=== PATIENT | female | born 2005 | race Caucasian/White ===

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

== ENCOUNTER 2024-11-28 19:31 | Inpatient (IN) | payer OTHER, SELFPAY ==
--- OUTSIDE RECORDS SUMMARY | 2024-11-28 19:35 | XMS REPORT | Continuity of Care Document ---
Author Name Unknown Address [address] [place] [address] Organization [facility] Address [address] [place] [address] Care Team Providers [employer] Name Role Phone PCP, PATIENT DOES NOT HAVE A Primary Care Physic Rachel Huerta MD Attending Clinician Unknown, Attending Attending Clinician RACHEL Coon Attending Clinician Unavailable Payers Payer Name Policy Type Policy Number Effective Date Expirati on Date Source Problems Condition Name Condition Details Condition Category Status Onset Date Resolution Date Last Treatment Date Treating Clinician Comments Source ADHD (attention deficit hyperactiv ity disorder) ADHD (attention deficit hyperactiv ity disorder) Disease Active 09-25 00:00: 00 [facility] Dyslexia Dyslexia Disease Active 09-25 00:00: 00 [facility] Medication management Medication management Disease Active 09-25 00:00: 00 Overview: Formatbucky g of this note might be different [...] so is now back on the Focalin [id number]--P ontinue Intuniv 2 mg in am--Dagmar nue Focalin XR 20 mg in am (w plan to increase to 30 mg)--Tria l of Celexa 10 mg at 6 pm [facility] Allergies, Adverse Reactions, Alerts Allergy Name Allergy Type Status Severity Reaction(s) Onset Date Inactive Date Treating Clinician Comments Source Cephalex in Propensi ty to adverse reaction s Active Swelling 10-03 00:00: 00 [facility] CEPHALEX IN DRUG INGREDI Active Swelling 10-03 00:00: 00 [facility] NO KNOWN ALLERGIE S Drug Class Active [facility] Social History Social Habit Start Date Stop Date Quantity Comments [facility] 2005 [facility] 2005 00:[facility]:00 [facility] Smoking Status Start Date Stop Date Source Tobacco smoking consumption unknown [facility] Medications Ordered Medication Name Filled Medication Name Start Date Stop Date Current Medication? Ordering Clinician Indication Dosage Frequency Signature (SIG) Comments Components Source ondansetron (ZOFRAN-ODT ) disintegrat ing tablet 4 mg 10-03 19:00: 00 10-03 18:12 :00 No [id number] 4mg 4 mg, Oral, ONCE, 1 dose, On 10/04/23 at 1400, Routine [facility] ondansetron 4 mg disintegrat ing tablet 10-03 00:00: 00 Yes [id number] 4mg Take 1 tablet by mouth every 12 (twelve) hours as needed for Nausea and Vomiting (N/V). [facility] bromphenira mine-pseudo ephedrine-D M (BROMFED DM) 2-30-10 mg/5 mL syrup 10-03 00:00: 00 Yes [id number] 10mL Take 10 mL by mouth 4 (four) times daily as needed for Congestion /Allergies , Cold symptoms or Cough. [facility] amoxicillin -clavulanat e (AUGMENTIN) 875-125 mg per tablet 10-03 00:00: 00 10-14 04:59 :00 No [id number] 1{tbl} Take 1 tablet by mouth in the morning and 1 tablet in the evening. Do all this for 10 days. [facility] dexmethylph enidate (FOCALIN XR) 20 mg 24 hr capsule 09-21 08:13: 58 Yes 20mg Take 20 mg by mouth daily. [facility] Guanfacine (INTUNIV) 2 mg Tb24 09-21 08:13: 58 Yes Take by mouth. [facility] citalopram (CELEXA) 10 mg tablet 09-21 00:00: 00 Yes At supper time/after school at about 6pm [facility] Vital Signs Vital Name Observation Time Observation Value Comments S zhou Systolic blood pressure 2023-10-04 17:31:00 121 mm[Hg] [facility] Diastolic blood pressure 2023-10-04 17:31:00 85 mm[Hg] [facility] Heart rate 2023-10-04 17:31:00 87 /min [facility] Body temperature 2023-10-04 17:31:00 36.83 Dora [facility] Respiratory rate 2023-10-04 17:31:00 18 /min [facility] Body height 2023-10-04 17:31:00 160 cm [facility] Body weight 2023-10-04 17:31:00 63.141 kg [facility] BMI 2023-10-04 17:31:00 24.66 kg/m2 [facility] Body mass index (BMI) [Percentile] Per age and sex 2023-10-04 17:31:00 78.46 % [facility] Oxygen saturation in Arterial blood by Pulse oximetry 2023-10-04 17:31:00 98 /min [facility] Procedures Procedure Date / Time Performed Performing Clinicia n Source POCT MOLECULAR STREP 2023-10-04 17:47:00 Cherelle, Marcello painter [facility] POCT SARS-COV-2 ANTIGEN (BINAX NOW) 2023-10-04 00:00:00 Rachel Montanez [facility] Encounters Start Date/Time End Date/Time Encounter Type Admission Type Attending Clinicians Care Facility Care Department Encounter ID Source 2022-06-25 15:09:28 [facility] [id number] [facility] 2022-06-24 16:20:54 Inpatient NEHA SOLOMON [id number] [facility] 2023-10-04 12:40:00 2023-10-04 13:05:24 Urgent Care Rachel Montanez Unknown, Attending [facility] [id number] [facility] 2023-10-04 12:40:00 2023-10-04 13:05:24 Outpatient R RACHEL MONTANEZ [facility] [id number] [facility] Results Test Description Test Time Test Comments Results Result Co mments Source [facility] [id number] 17:55:11* Test Item Value Reference Range Interpretation Comme nts POCT Molecular Strep (test c ode = 19871-9) Negative Negative Lab Interpretation (test cod e = [id number]) Normal [facility]
[2024-11-28] MEDS ORDERED: HYDROCODONE/APAP 5/325 MG TAB ONE ×2 (20:01→20:13)
[2024-11-28] MEDS ORDERED: KETOROLAC 30 MG/ML INJ ONE (20:01)
[2024-11-28] MEDS ORDERED: NA CHLORIDE 0.9% 1,000 ML ONE ×2 (20:02→21:57)
--- NOTE | 2024-11-28 20:47 | EDPHYS ---
Physician Documentation [facility] Name: Sally Bautista Age: 19 yrs Sex: Female : 2005 Arrival Date: 11/28/2024 Time: 19:31 Bed 19 Private MD: ED Physician Jung Garcia HPI: 11/28 23:19 This 19 yrs old Female presents to ER via Ambulatory with complaints of Ear dr5 Pain, Back Pain. 23:19 The patient presents with pain. The complaints affect the left ear. Onset: The dr5 symptoms/episode began/occurred 1 week(s) ago. Patient is a 19-year-old female with history of ADD, anxiety, depression, PTSD coming in with left ear pain for the past week with drainage and dizziness, weakness. Patient reports that she has had syncopal episodes for the past 5 years and has not been seen by primary care doctor for it. Patient reports that she has a syncopal episode usually once every 3 days. Patient reports that she also has chronic back pain. Patient denies headache, numbness, tingling, nausea, vomiting, diarrhea. . Historical: - Allergies: 19:50 Keflex; ha1 19:50 ORANGES; ha1 19:50 Pineapple; ha1 - Home Meds: 19:50 hydroxyzine HCl 25 mg Oral tablet 1 tab as needed [Active]; buspirone 10 mg Oral tablet ha1 1 tab daily [Active]; Concerta 54 mg Oral tablet daily [Active]; - PMHx: 19:50 ADD; Anxiety; depressive disorder; PTSD; ha1 - Immunization history:: Adult Immunizations up to date. - Infectious Disease History:: Denies. - Social history:: Smoking status: Patient reports the use of cigarette tobacco products, denies chronic smoking, but will smoke occasionally, Reported history of juuling and/or vaping. ROS: 23:19 Constitutional: as per hpi dr5 Exam: 23:19 Constitutional: This is a well developed, well nourished patient who is awake, alert, dr5 and in no acute distress. Head/Face: Normocephalic, atraumatic. Eyes: Pupils equal round and reactive to light, extra-ocular motions intact. Lids and lashes normal. Conjunctiva and sclera are non-icteric and not injected. Cornea within normal limits. Periorbital areas with no swelling, redness, or edema. Neck: Trachea midline, no thyromegaly or masses palpated, and no cervical lymphadenopathy. Supple, full range of motion without nuchal rigidity, or vertebral point tenderness. No Meningismus. Chest/axilla: Normal chest wall appearance and motion. Nontender with no deformity. No lesions are appreciated. Cardiovascular: Regular rate and rhythm with a normal S1 and S2. Normal PMI, no JVD. No pulse deficits. Respiratory: Lungs have equal breath sounds bilaterally, clear to auscultation. No rales, rhonchi or wheezes noted. No increased work of breathing, no retractions or nasal flaring. Back: No spinal tenderness. No costovertebral tenderness. Full range of motion. Skin: Warm, dry with normal turgor. Normal color with no rashes, no lesions, and no evidence of cellulitis. MS/ Extremity: Pulses equal, no cyanosis. Neurovascular intact. Full, normal range of motion. Neuro: Awake and alert, GCS 15, oriented to person, place, time, and situation. Cranial nerves II-XII grossly intact. Motor strength 5/5 in all extremities. Sensory grossly intact. Cerebellar exam normal. Normal gait. Vital Signs: 19:40 BP 125 / 99; Pulse 106; Resp 18 S; Temp 97.6(O); Pulse Ox 100% on R/A; Weight 58.97 kg; ha1 Height 5 ft. 0 in. ; Pain 8/10; 20:27 BP 138 / 77; Pulse 88; Resp 18; Pulse Ox 100% ; kt5 21:01 BP 113 / 87; Pulse 87; Resp 18; Pulse Ox 100% ; kt5 22:00 BP 120 / 71; Pulse 91; Resp 18 S; Pulse Ox 98% on R/A; ha1 22:43 BP 109 / 67; Pulse 92; Resp 18 S; Pulse Ox 98% on R/A; ha1 23:45 BP 112 / 80; Pulse 76; Resp 18 S; Temp 98.3; Pulse Ox 99% on R/A; ha1 19:40 Body Mass Index 25.39 (58.97 kg, 152.4 cm) - Percentile 80.4 % ha1 19:40 Pain Scale: Adult [facility] MDM: 19:38 Medical Screening Exam initiated dr5 21:09 Differential diagnosis: otitis media, otitis externa, POTS, syncope, anemia, dr5 intracranial hemorrhage, brain mass. Data reviewed: vital signs, nurses notes, lab test result(s), cardiac enzymes, troponin i, CBC, white blood cell count, hemoglobin, hematocrit, platelets, electrolytes, sodium, potassium, chloride, serum bicarbonate, BUN, creatinine, serum glucose, EKG, radiologic studies, CT scan. Consideration of Admission/Observation Patient was admitted/placed on observation. Management of patient was discussed with the following: Hospitalist: Dr. Turner. I considered the following discharge prescriptions or medication management in the emergency department I discussed and recommended Over The Counter medications, Medications were administered in the Emergency Department. See MAR. Independent interpretation of the following test(s) in the Emergency Department CT Scan: My interpretation is Independent interpretation of CT scan does not reveal brain mass or bleed. Historians other than the Patient: Spouse/Significant Other: Boyfriend. Care significantly affected by the following chronic conditions: ADD, anxiety, depression, PTSD. Care significantly affected by the following Social Determinants of Health: Poor access to healthcare and/or lack of insurance, Poor access to transportation, Unemployment, Problems related to employment. Scoring Tools HEART Score: History: ECG: Age: Risk Factors: Troponin: Total Score = 0. Counseling: I had a detailed discussion with the patient and/or guardian regarding the historical points, exam findings, and any diagnostic results supporting the discharge/admit diagnosis, the presence of at least one elevated blood pressure reading (>120/80) during this emergency department visit, lab results, radiology results, the need for further work-up and treatment in the hospital. Medication response: 2 L normal saline. Response to treatment: There is no appreciated change of the patient's symptoms at this time. ED course: Attempted to get patient up and ambulate but patient syncopized. Patient had a total of 5 syncopal episodes upon attempting to discharge. Patient was placed back in room, blood work and CT scan obtained, and patient was admitted to hospitalist. Patient is agreeable to plan. 11/28 21:31 Order name: Basic Metabolic Panel; Complete Time: :33 dr5 11/28 21:31 Order name: CBC with Diff; Complete Time: 22:17 dr5 11/28 21:31 Order name: Hepatic Function; Complete Time: : dr5 11/28 21:31 Order name: Magnesium; Complete Time: 22:33 dr5 11/28 21:31 Order name: Test, Urine; Complete Time: 23:25 dr5 11/28 21:31 Order name: Protime (+inr); Complete Time: 22:17 dr5 11/28 21:31 Order name: Ptt, Activated; Complete Time: 22:17 dr5 11/28 21:31 Order name: Troponin High Sensitivity; Complete Time: 22:33 dr5 11/28 21:31 Order name: UDS; Complete Time: 00:15 dr5 11/28 21:31 Order name: UA Rfx Kody Cult if indicated; Complete Time: 23:25 dr5 11/28 23:21 Order name: CBC with Automated Diff EDMS 11/28 23:21 Order name: CBC with Automated Diff EDMS 11/28 23:21 Order name: Comprehensive Metabolic Panel EDMS 11/28 23:21 Order name: Comprehensive Metabolic Panel EDMS 11/28 23:21 Order name: Troponin High Sensitivity EDMS 11/28 23:21 Order name: Troponin High Sensitivity EDMS 11/28 23:21 Order name: Troponin High Sensitivity EDMS 11/28 23:21 Order name: Troponin High Sensitivity EDMS 11/28 21:31 Order name: CT Head Brain wo Cont; Complete Time: 22:42 dr5 11/28 21:31 Order name: Chest Single View XRAY; Complete Time: 22:33 dr5 11/28 21:31 Order name: EKG; Complete Time: 21:31 dr5 11/28 19:58 Order name: IV Start; Complete Time: 20:05 11/28 21:31 Order name: Cardiac monitoring; Complete Time: 22:10 11/28 21:31 Order name: EKG - Nurse/Tech; Complete Time: 22:10 11/28 21:31 Order name: IV Saline Lock; Complete Time: 21:55 dr5 11/28 21:31 Order name: Labs collected and sent; Complete Time: 21:55 dr5 11/28 21:31 Order name: NPO; Complete Time: 21:58 dr5 11/28 21:31 Order name: O2 Per Protocol; Complete Time: 21:55 dr5 11/28 21:31 Order name: O2 Sat Monitoring; Complete Time: 21:55 dr5 EC:09 Rate is 85 beats/min. Rhythm is regular. QRS [place] is Normal. [place] interval is normal at dr5 126 msec. QRS interval is normal at 74 msec. QT interval is normal at 352 msec. Clinical impression: Normal ECG and No evidence of ischemia. Administered Medications: 20:09 Drug: Ketorolac IVP 15 mg IVP once Route: IVP; Site: right antecubital; kt5 21:07 Follow up: Response: No adverse reaction; No change in condition kt5 20:10 Drug: NS 0.9% IV 1000 ml IV at 1000 ml once; to be given as a bolus over 60 minutes kt5 Route: IV; Rate: 1000 ml; Site: right antecubital; 21:07 Follow up: Response: No adverse reaction; IV Status: Completed infusion kt5 20:10 Drug: HYDROcodone-acetaminophen PO 5 mg-325 mg 2 tabs PO once Route: PO; kt5 21:07 Follow up: Response: No adverse reaction; No change in condition kt5 22:10 Drug: NS 0.9% IV 1000 ml IV at 1000 ml once; to be given as a bolus over 60 minutes me1 Route: IV; Rate: 1000 ml; Site: left hand; 11/29 00:50 Follow up: Response: No adverse reaction; IV Status: Completed infusion ha1 11/28 22:10 Drug: Ondansetron IVP 4 mg IVP once; over 2 minutes Route: IVP; Site: left hand; fl1 22:30 Follow up: Response: No adverse reaction ha1 Disposition: 11/29 05:26 Co-signature as Attending Physician, Jung Garcia DO I agree with the assessment and tt7 plan of care. Disposition Summary: 11/28/24 23:25 Hospitalization Ordered Notes: Hospitalization Status: Inpatient Admission dr5 Provider: Kirit Turner dr5 Location: Telemetry/MedSurg (Inpatient)(11/28/24 23:25) dr5 Condition: Stable(11/28/24 23:25) dr5 Problem: new dr5 Symptoms: have worsened dr5 Bed/Room Type: Standard [facility] Room Assignment: [facility](11/28/24 23:30) [facility] Diagnosis - Syncope Near dr5 - Dizziness and giddiness dr5 Forms: - Medication Reconciliation Form dr5 - SBAR form dr5 - Leadership Thank You Letter dr5 Signatures: Dispatcher [employer] EDValentina Kim RN RN eb1 Ely Fitzpatrick RN RN ha1 Macey Cabrera rv1 Siobhan He, DESTINEE RN me1 Ori Mcnulty, SCHOOL CURRICULUM DEVELOPER-C SCHOOL CURRICULUM DEVELOPER-Cdr5 Blanche Kincaid, DESTINEE RN kt5 Jung Garcia, DO GARCIA tt7 Corrections: (The following items were deleted from the chart) 11/28 21:30 20:46 Home dr5 dr5 21:30 20:46 Stable dr5 dr5 : 20:46 Other otitis externa, left ear dr5 dr5 23: 23:25 dr5 rv1 23: 23:29 423 rv1 eb1
--- NOTE | 2024-11-28 20:47 | ER ---
Nurse's Notes [facility] Name: Sally Bautista Age: 19 yrs Sex: Female : 2005 Arrival Date: 11/28/2024 Time: 19:31 Bed 19 Private MD: Diagnosis: Syncope Near;Dizziness and giddiness Presentation: 11/28 19:40 Chief complaint: Patient states: LEFT EAR PAIN FOR OVER A WEEK, BACK PAIN THAT HAS GOT ha1 WORSE OVER THE PAST FIVE YEARS, AND CHEST PALPITATIONS OVER A YEAR. 19:40 Coronavirus screen: Client denies travel out of the [place] in the last 14 days. Ebola ha1 Screen: No symptoms or risks identified at this time. Initial Sepsis Screen: Does the patient meet any 2 criteria? No. Patient's initial sepsis screen is negative. Does the patient have a suspected source of infection? No. Patient's initial sepsis screen is negative. Risk Assessment: Do you want to hurt yourself or someone else? Patient reports no desire to harm self or others. Onset of symptoms was November 28, 2024. 19:40 Method Of Arrival: Ambulatory ha1 19:40 Acuity: JOSE 3 ha1 Triage Assessment: 19:50 General: Appears comfortable, Behavior is calm, cooperative. Pain: Complains of pain in ha1 back Pain currently is 8 out of 10 on a pain scale. Quality of pain is described as throbbing. Neuro: Level of Consciousness is awake, alert, obeys commands, Oriented to person, place, time, situation. Cardiovascular: Capillary refill < 3 seconds Patient's skin is warm and dry. Respiratory: Airway is patent Respiratory effort is even, unlabored, Respiratory pattern is regular, symmetrical. Historical: - Allergies: 19:50 Keflex; ha1 19:50 ORANGES; ha1 19:50 Pineapple; ha1 - Home Meds: 19:50 hydroxyzine HCl 25 mg Oral tablet 1 tab as needed [Active]; buspirone 10 mg Oral tablet ha1 1 tab daily [Active]; Concerta 54 mg Oral tablet daily [Active]; - PMHx: 19:50 ADD; Anxiety; depressive disorder; PTSD; ha1 - Immunization history:: Adult Immunizations up to date. - Infectious Disease History:: Denies. - Social history:: Smoking status: Patient reports the use of cigarette tobacco products, denies chronic smoking, but will smoke occasionally, Reported history of juuling and/or vaping. Screenin:49 [facility] ED Fall Risk Assessment (Adult) History of falling in the last 3 months, kt5 including since admission No falls in past 3 months (0 pts) Confusion or Disorientation No (0 pts) Intoxicated or Sedated No (0 pts) Impaired Gait No (0 pts) Mobility Assist Device Used No (0 pt) Altered Elimination No (0 pt) Score/Fall Risk Level 0 - 2 = Low Risk. Abuse screen: Denies threats or abuse. Nutritional screening: No deficits noted. Tuberculosis screening: No symptoms or risk factors identified. Assessment: 19:49 General: Appears in no apparent distress. comfortable, Behavior is calm, cooperative, kt5 appropriate for age. Pain: Complains of pain in right knee Pain began pt here c/o of lower back pain for 5 yrs, right knee pain for 14 months, left ear pain for 1 week and heart palpitations for 14 months. Neuro: No deficits noted. Bello Agitation-Sedation Scale (RASS): 0 - Alert and Calm. Cardiovascular: Reports palpitations, Denies chest pain, Heart tones S1 S2 present Capillary refill < 3 seconds Clubbing of nail beds is absent JVD is absent Pulses are all present. Edema is absent. Chest pain is denied. Respiratory: No deficits noted. Airway is patent Trachea midline Respiratory effort is even, unlabored, Respiratory pattern is regular, symmetrical. GI: No deficits noted. No signs and/or symptoms were reported involving the gastrointestinal system. Abdomen is flat, non-distended, Bowel sounds present X 4 quads. Abd is soft and non tender X 4 quads. : No deficits noted. No signs and/or symptoms were reported regarding the genitourinary system. EENT: left ear pain. Derm: No deficits noted. No signs and/or symptoms reported regarding the dermatologic system. Skin is intact, Skin is dry, Skin is pink, warm \T\ dry. Musculoskeletal:. 20:27 Reassessment: Patient appears in no apparent distress at this time. Patient and/or kt5 family updated on plan of care and expected duration. Pain level reassessed. Patient is alert, oriented x 3, equal unlabored respirations, skin warm/dry/pink. pt resting comfortable on monitors, v/s/s, will cont to monitor. 20:50 Reassessment: pt up ambulating to rr w/o complications. kt5 21:02 Reassessment: pt had syncopal episode when being discharge, provider at . kt5 21:33 Reassessment: pt had 2 more syncopal episodes during the discharge process, provider kt5 aware, pt placed in room 19 for full work up and admissions. 21:57 General: Appears in no apparent distress. comfortable, Behavior is calm, cooperative, me1 appropriate for age. Pain: Denies pain. Neuro: Bello Agitation-Sedation Scale (RASS): 0 - Alert and Calm Level of Consciousness is awake, alert, obeys commands, Oriented to person, place, time, situation, Appropriate for age. Cardiovascular: Patient's skin is warm and dry. Cardiovascular: Reports palpitations. Respiratory: Airway is patent Respiratory effort is even, unlabored, Respiratory pattern is regular, symmetrical. GI: No signs and/or symptoms were reported involving the gastrointestinal system. : No signs and/or symptoms were reported regarding the genitourinary system. Derm: Skin is intact, is healthy with good turgor, Skin is normal. Musculoskeletal: Circulation, motion, and sensation intact. Range of motion: intact in all extremities. 22:43 Reassessment: Patient and/or family updated on plan of care and expected duration. Pain ha1 level reassessed. Patient is alert, oriented x 3, equal unlabored respirations, skin warm/dry/pink. Patient states feeling better. Patient states symptoms have improved. Vital Signs: 19:40 BP 125 / 99; Pulse 106; Resp 18 S; Temp 97.6(O); Pulse Ox 100% on R/A; Weight 58.97 kg; ha1 Height 5 ft. 0 in. ; Pain 8/10; 20:27 BP 138 / 77; Pulse 88; Resp 18; Pulse Ox 100% ; kt5 21:01 BP 113 / 87; Pulse 87; Resp 18; Pulse Ox 100% ; kt5 22:00 BP 120 / 71; Pulse 91; Resp 18 S; Pulse Ox 98% on R/A; ha1 22:43 BP 109 / 67; Pulse 92; Resp 18 S; Pulse Ox 98% on R/A; ha1 23:45 BP 112 / 80; Pulse 76; Resp 18 S; Temp 98.3; Pulse Ox 99% on R/A; ha1 19:40 Body Mass Index 25.39 (58.97 kg, 152.4 cm) - Percentile 80.4 % ha1 19:40 Pain Scale: Adult ha1 ED Course: 19:37 Patient arrived in ED. gm2 19:38 Ori Mcnulty FNP-C [facility]. dr5 19:38 Jung Garcia DO is Attending Physician. dr5 19:46 Blanche Kincaid RN is Primary Nurse. kt5 19:49 Patient has correct armband on for positive identification. Bed in low position. Call kt5 light in reach. Side rails up X 1. Client placed on continuous cardiac and pulse oximetry monitoring. NIBP monitoring applied. Door closed. Noise minimized. 19:49 No provider procedures requiring assistance completed. kt5 19:50 Triage completed. ha1 20:05 Inserted saline lock: 20 gauge in right antecubital area, using aseptic technique. rk3 Flushed with 10 mL NS. 21:30 IV discontinued, intact, bleeding controlled, No redness/swelling at site. Pressure rk3 dressing applied. 21:46 Chest Single View XRAY In Process Unspecified. EDMS 21:54 Inserted saline lock: 20 gauge in left hand, using aseptic technique. Blood collected. rk3 Flushed with 10 mL NS. 21:54 Initial lab(s) drawn, by me, sent to lab. rk3 21:57 Provided Education on: POC. Verbalized understanding.. me1 21:58 CT Head Brain wo Cont In Process Unspecified. EDMS 23:24 Kirit Turner MD is Hospitalizing Provider. dr5 11/29 00:50 Patient admitted, IV remains in place. ha1 Administered Medications: 11/28 20:09 Drug: Ketorolac IVP 15 mg IVP once Route: IVP; Site: right antecubital; kt5 21:07 Follow up: Response: No adverse reaction; No change in condition kt5 20:10 Drug: NS 0.9% IV 1000 ml IV at 1000 ml once; to be given as a bolus over 60 minutes kt5 Route: IV; Rate: 1000 ml; Site: right antecubital; 21:07 Follow up: Response: No adverse reaction; IV Status: Completed infusion kt5 20:10 Drug: HYDROcodone-acetaminophen PO 5 mg-325 mg 2 tabs PO once Route: PO; kt5 21:07 Follow up: Response: No adverse reaction; No change in condition kt5 22:10 Drug: NS 0.9% IV 1000 ml IV at 1000 ml once; to be given as a bolus over 60 minutes me1 Route: IV; Rate: 1000 ml; Site: left hand; 11/29 00:50 Follow up: Response: No adverse reaction; IV Status: Completed infusion ha1 11/28 22:10 Drug: Ondansetron IVP 4 mg IVP once; over 2 minutes Route: IVP; Site: left hand; me1 22:30 Follow up: Response: No adverse reaction ha1 Medication: 19:49 VIS not applicable for this client. kt5 Outcome: 20:46 Discharge ordered by MD. dr5 23:25 Decision to Hospitalize by Provider. dr5 11/29 00:50 Admitted to Tele accompanied by tech, via stretcher, room 409, with chart, ha1 Condition: stable Instructed on the need for admit, Demonstrated understanding of instructions, 00:56 Patient left the ED. vk Signatures: Dispatcher [employer] Ely Cuello, RN RN ha1 Siobhan He, RN RN me1 Khalida Lyons 2 Renetta Chavez Dustin, REPAIR ELECTRIC MOTOR ASSEMBLER-C REPAIR ELECTRIC MOTOR ASSEMBLER-[facility]5 Jordan Griffith3 Blanche Kincaid, RN RN kt5
[2024-11-28] MEDS ORDERED: ONDANSETRON 4 MG/2 ML VIAL ONE (21:56)
[2024-11-28 22:04] LABS: Absolute Lymphocytes (CBC) 2.0 K/uL (0.7-4.9); Hematocrit 42.7 % (36.0-45.0); Hemoglobin 14.1 g/dL (12.0-15.0); MCH 29.4 pg (27.0-35.0); MCHC 33.0 g/dL (32.0-36.0); MCV 88.8 fL (80-100); MPV 8.7 fL (7.6-11.3); Nucleated RBC Absolute Count 0.0 (0-0); Nucleated Red Blood Cells % 0.0 % (0-0); RBC Red Blood Cell Count 4.81 M/uL (3.86-4.86); White Blood Count 9.50 thou/uL (4.3-10.9)
[2024-11-28 22:09] LABS: PT Prothrombin Time 13.8 SECONDS (10-13.0); PTT, Activated Partial Thromb 31.7 SECONDS (27.2-37.4); Protime INR 1.23
[2024-11-28 22:19] LABS: ALT/SGPT 15 U/L (13-56); Albumin 3.8 g/dL (3.4-5.0); Albumin/Globulin Ratio 1.0 (1.1-1.8); Alkaline Phosphatase 69 U/L (45-117); Anion Gap 8.7 mEq/L (5.0-15.0); BUN Blood Urea Nitrogen 4 mg/dL (7-18); Globulin 3.7 g/dL (2.3-3.5); Glucose Level 85 mg/dL (74-106); Magnesium 2.1 mg/dL (1.6-2.4); Potassium 3.7 mEq/L (3.5-5.1)
[2024-11-28 22:24] LABS: AST/SGOT < 10 U/L (15-37); Bilirubin Indirect, Calculated 0.3 mg/dL (0.2-0.8); Troponin High Sensitivity < 3.0 pg/mL (<58.9)
--- NOTE | 2024-11-28 22:32 | RAD REPORT ---
EXAMINATION: ONE VIEW CHEST XR CLINICAL INDICATION: Female, 19 years old.,SOB TECHNIQUE: Frontal chest projection is submitted. Examination is limited by patient positioning and t echnique. COMPARISON: 06/28/2007 FINDINGS: The lungs are well inflated and clear. No pneumothorax or sizable effusion. The heart is normal in s ize. Mediastinal contours are unremarkable. IMPRESSION: No acute intrathoracic abnormalities.
--- NOTE | 2024-11-28 22:36 | RAD REPORT ---
EXAM: CT Head Brain Wo Cont HISTORY: SYNCOPE COMPARISON: None TECHNIQUE: Multiple contiguous axial images were obtained for a CT of the brain without contrast. Sag ittal and coronal reformats were performed. One or more of the following dose reduction techniques were used: Automated exposure control, adjus tment of the mA and kV according to patient size, and iterative reconstruction. Unless otherwise specified, incidental findings do not require dedicated imaging follow-up. FINDINGS: No evidence of hydrocephalus, intracranial hemorrhage, or extra-axial fluid collection. The brain is normal in morphology. The calvarium is intact. The visualized paranasal sinuses and mastoid air cells are essentially clear . IMPRESSION: No evidence of acute intracranial abnormality.
--- NOTE | 2024-11-28 23:15 | P.HP ---
Certification for Inpatient Patient admitted to: Observation With expected LOS: <2 Midnights Practitioner: I am a practitioner with admitting privileges, knowledge of patient current condition, hospital course, and medical plan of care. Services: Services provided to patient in accordance with Admission requirements found in Title 42 Section 412.3 of the Code of Federal Regulations Patient History Date of Service: 11/29/24 Reason for admission: Syncope History of Present Illness: 19 yrs old Female with past medical history of anxiety ADD depression and PTSD was brought to ER with dizziness and left ear pain. Patient had a syncopal episodes for the last 5 years as per the patient, intermittent. Never seen a PCP about that. Patient reports that she has a syncopal episode usually once every 3 days. Patient reports that she also has chronic back pain. Patient denies headache, numbness, tingling, nausea, vomiting, diarrhea. No focal weakness. Patient was assessed in the ER and was admitted for further management of syncope. Allergies cephalexin [From Keflex] Allergy (Verified 11/29/24 01:01) Itching/Hives/Rash orange Allergy (Verified 11/29/24 01:01) Itching/Hives/Rash pineapple Allergy (Verified 11/29/24 01:01) Itching/Hives/Rash - Past Medical/Surgical History Past Medical History: Reviewed- Non-Contributory Past Surgical History: Reviewed- Non-Contributory Review of Systems 10-point ROS is otherwise unremarkable Physical Examination - Vital Signs Temperature: 97.6 F Blood Pressure: 125/99 Pulse: 106 Respirations: 18 Pulse Ox (%): 96 - Physical Exam General: Alert, In no apparent distress, Oriented x3 HEENT: Atraumatic, Normocephalic Neck: Supple Respiratory: Clear to auscultation bilaterally, Normal air movement Cardiovascular: Regular rate/rhythm, Normal S1 S2 Capillary refill: <2 Seconds Gastrointestinal: Soft and benign, W/out hepatosplenomegaly Musculoskeletal: No clubbing Integumentary: No rashes, No tenderness/swelling Neurological: Normal gait, Normal speech, Normal strength at 5/5 x4 extr, Cranial nerves 3-12 intact, Normal reflexes 2+ Lymphatics: No axilla or inguinal lymphadenopathy - Studies Laboratory Data (last 24 hrs) 11/28/24 11/28/24 11/28/24 21:52 21:52 21:52 WBC 9.50 Hgb 14.1 Hct 42.7 Plt Count 248 PT 13.8 H INR 1.23 APTT 31.7 Sodium 142 Potassium 3.7 BUN 4 L Creatinine 0.74 Glucose 85 Magnesium 2.1 Total Bilirubin 0.5 AST < 10 L ALT 15 Alkaline Phosphatase 69 Assessment and Plan - Plan Syncope Monitor closely on telemetry Watch closely for any arrhythmias Will get the orthostatic vital signs Started on meclizine as needed Anxiety ADD Depression Continue home medications GI/DVT prophylaxis Advanced directive full code Discharge Plan: Home Plan to discharge in: 24 Hours - Advance Directives Does patient have a Living Will: No Does patient have a Durable POA for Healthcare: No - Code Status/Comfort Care Code Status: Full Code Time Spent Managing Pts Care (In Minutes): 48
[2024-11-28 23:21] LABS: Sqamous Epithelial <5 /HPF (None Seen); Urine Culture Reflex Order NOT NEEDED; Urine Microscopic Reflex YN ORDER UMIC
[2024-11-28 23:39] LABS: METHAMPHETAM NEGATIVE (NEGATIVE); THC Cannibis NEGATIVE (NEGATIVE)
[2024-11-29] MEDS: NA CHLORIDE 0.9% 1,000 ML IV SCH (02:15)
[2024-11-29] MEDS: ACETAMINOPHEN 325 MG TABLET PO PRN (02:16)
[2024-11-29] MEDS: ONDANSETRON 4 MG/2 ML VIAL IV PRN (04:15)
[2024-11-29] MEDS: MECLIZINE HCL 12.5 MG TAB PO PRN (05:44)
[2024-11-29 06:09] LABS: Absolute Lymphocytes (CBC) 2.4 K/uL (0.7-4.9); Hematocrit 37.1 % (36.0-45.0); Hemoglobin 12.6 g/dL (12.0-15.0); MCH 29.8 pg (27.0-35.0); MCHC 33.9 g/dL (32.0-36.0); MCV 87.7 fL (80-100); MPV 8.6 fL (7.6-11.3); Nucleated RBC Absolute Count 0.0 (0-0); Nucleated Red Blood Cells % 0.2 % (0-0); RBC Red Blood Cell Count 4.23 M/uL (3.86-4.86); White Blood Count 7.10 thou/uL (4.3-10.9)
[2024-11-29 06:23] LABS: Albumin 3.0 g/dL (3.4-5.0); Albumin/Globulin Ratio 1.0 (1.1-1.8); Alkaline Phosphatase 59 U/L (45-117); Anion Gap 7.5 mEq/L (5.0-15.0); BUN Blood Urea Nitrogen 5 mg/dL (7-18); Globulin 2.9 g/dL (2.3-3.5); Glucose Level 81 mg/dL (74-106); Potassium 3.5 mEq/L (3.5-5.1)
[2024-11-29 06:24] LABS: ALT/SGPT < 14 U/L (13-56); AST/SGOT < 10 U/L (15-37)
--- NOTE | 2024-11-29 10:30 | P.PN ---
Date of Service: 11/29/24 Subjective: feeling better today, but still dizzy reports recurrent left ear infection says dizziness worsens when she gets these infections afebrile Physical Exam: Gen: Alert, Oriented, NAD CV: Regular rate and rhythm, no edema Pulm: Nonlabored respirations on room air, clear bilaterally Abdomen: Soft, nontender, nondistended Neuro: Normal strength, normal affect Problem List: Recurrent Left ear infection Dizziness ADD/Depression/Anxiety/PTSD Chronic back pain On admission, presents with left ear pain associated with dizziness. Dizziness worsens / syncope when she has ear infections CXR negative. CT head negative. confirm home meds, restart as appropriate IV fluids, pain control PRN meclizine for dizziness augmentin for infxn Labs unremarkable. UA not suggestive of UTI. check orthostatics VTE: SCD Code: Full Dispo: Home, ~24-48hrs
[2024-11-29] MEDS: POTASSIUM CL SA 10 MEQ TAB PO ONE (10:40)
[2024-11-29] MEDS: AMOX/K CLAV 875 MG TAB PO SCH (20:00)
[2024-11-29] MEDS: HYDROCODONE/APAP 5/325 MG TAB PO PRN (21:31)
[2024-11-30 00:01] VITALS: BMI 27.6
[2024-11-30 05:49] LABS: Hematocrit 36.6 % (36.0-45.0); Hemoglobin 12.7 g/dL (12.0-15.0); MCH 30.6 pg (27.0-35.0); MCHC 34.7 g/dL (32.0-36.0); MCV 88.3 fL (80-100); MPV 8.6 fL (7.6-11.3); RBC Red Blood Cell Count 4.14 M/uL (3.86-4.86); White Blood Count 6.30 thou/uL (4.3-10.9)
[2024-11-30 06:08] LABS: Anion Gap 7.0 mEq/L (5.0-15.0); BUN Blood Urea Nitrogen 5.0 mg/dL (7-18); Glucose Level 89.0 mg/dL (74-106); Magnesium 2.1 mg/dL (1.6-2.4); Potassium 4.0 mEq/L (3.5-5.1)
[2024-11-30] MEDS: NA CHLORIDE 0.9% 1,000 ML IV SCH (08:52)
--- NOTE | 2024-11-30 08:56 | P.PN ---
Date of Service: 11/30/24 Subjective: reports passing out last night after sitting up too quickly prior to these episodes, she report passing out mainly back when she was more active / working out at the gym some irritation noted near ear canal with some white plaque on exam this morning body felt stiff yesterday, slightly improved today ear pain slightly worse afebrile Physical Exam: Gen: Alert, Oriented, NAD CV: Regular rate and rhythm, no edema HEENT: white scab/plaque of posterior external ear canal near TM Pulm: Nonlabored respirations on room air Abdomen: Soft, nontender, nondistended Problem List: Recurrent left external ear infection Dizziness/Syncope ADD/Depression/Anxiety/PTSD Chronic back pain On admission, presents with left ear pain associated with dizziness. Dizziness worsens / syncope when she has ear infections Dizziness/Syncope possibly related to POTS further exacerbated by ear infection. Will need outpatient f/u to further eval CXR negative. CT head negative. Orthostatic vitals were negative. Labs unremarkable. UA not suggestive of UTI. Continue oral augmentin to cover ear infection PRN meclizine for dizziness IV fluids, pain control Add ear drops, decrease IVF check CRP/CAROLIN VTE: SCD Code: Full Dispo: Home, ~24-48hrs Time Spent Managing Pts Care (In Minutes): 45
[2024-11-30] MEDS: NEOMY/POLY/HC 1% OTIC DROPS OTIC SCH (11:14)
--- NOTE | 2024-11-30 22:05 | RAD REPORT ---
EXAM: US Carotid Artery Bilateral CLINICAL INDICATION: near syncope / syncope TECHNIQUE: Real-time grayscale, color flow, and spectral Doppler sonographic images were obtained of the extracranial carotid system using a linear transducer. Arterial peak systolic velocities are recorded as follows. COMPARISON: No prior exam. FINDINGS: RIGHT: Common carotid artery: 108 cm/s Internal carotid artery: 110 cm/s Right ICA/CCA ratio: 1.0 Plaque None External carotid artery: 97 cm/s Vertebral artery: Antegrade LEFT: Common carotid artery: 108 cm/s Internal carotid artery: 109 cm/s Left ICA/CCA ratio: 1.0 Plaque None External carotid artery: 96 cm/s Vertebral artery: Antegrade IMPRESSION: No hemodynamically significant stenosis (greater than 50%) within the extracranial internal carotid a rteries. The degrees of stenosis, if any, are quantified according to the consensus statement of the Society o f Radiologists in Ultrasound (SRUS). Please refer to Amilcar E, Pineda C, Kevin G et al. Carotid Artery Stenosis: Krishnamurthy-Scale and Doppler US Diagnosis--Society of Radiologists in Ultrasound Consensus Conference. Radiology. 2003;229(2):340-6. doi:10.1148/[id number]
[2024-12-01 05:17] LABS: Absolute Lymphocytes (CBC) 2.1 K/uL (0.7-4.9); Hematocrit 38.4 % (36.0-45.0); Hemoglobin 13.5 g/dL (12.0-15.0); MCH 30.6 pg (27.0-35.0); MCHC 35.0 g/dL (32.0-36.0); MCV 87.3 fL (80-100); MPV 8.4 fL (7.6-11.3); Nucleated RBC Absolute Count 0.0 (0-0); Nucleated Red Blood Cells % 0.1 % (0-0); RBC Red Blood Cell Count 4.41 M/uL (3.86-4.86); White Blood Count 7.20 thou/uL (4.3-10.9)
[2024-12-01 05:38] LABS: Albumin 3.3 g/dL (3.4-5.0); Albumin/Globulin Ratio 1.0 (1.1-1.8); Alkaline Phosphatase 68 U/L (45-117); Anion Gap 6.8 mEq/L (5.0-15.0); BUN Blood Urea Nitrogen 4 mg/dL (7-18); Globulin 3.2 g/dL (2.3-3.5); Glucose Level 103 mg/dL (74-106); Magnesium 2.1 mg/dL (1.6-2.4); Potassium 3.8 mEq/L (3.5-5.1)
[2024-12-01 05:46] LABS: ALT/SGPT < 14 U/L (13-56); AST/SGOT < 10 U/L (15-37)
[2024-12-01] MEDS: POTASSIUM CL SA 10 MEQ TAB PO ONE (08:11)
[2024-12-01 08:21] VITALS: O2SAT 98
--- NOTE | 2024-12-01 11:45 | P.DS ---
Admission Date: 11/29/24 Discharge Date: 12/01/24 Disposition: ROUTINE DISCHARGE Discharge Condition: GOOD Reason for Admission: Syncope Brief History of Present Illness: 19yo F, PMH: anxiety ADD depression and PTSD Patient brought to ER with dizziness and left ear pain. Patient had a syncopal episodes for the last 5 years as per the patient, intermittent. Never seen a PCP about that. Patient reports that she has a syncopal episode usually once every 3 days. Patient reports that she also has chronic back pain. Patient denies headache, numbness, tingling, nausea, vomiting, diarrhea. No focal weakness. Patient was assessed in the ER and was admitted for further management of syncope. Hospital Course: Problem List: Recurrent left external ear infection Dizziness/Syncope ADD/Depression/Anxiety/PTSD Chronic back pain Physician discharge instructions: Patient presented with left ear pain associated with worsening dizziness secon piero to recurrent left ear infection. She reported chronic intermittent dizziness / syncope for a few years, and currently a bit worse. Has been told she may have POTS but has not yet had any formal testing / no tilt table done yet. Chest xray was negative on admission. CT head was negative. She received empiric Augmentin in addition to eardrops and IV fluids and had improvement of her symptoms. Orthostatic vitals were negative this hospitalization. Discussed with patient that her symptoms could be related to Postural Orthostatic Tachycardia Syndrome (POTS) further exacerbated/complicated by recurrent ear infections. ER reportedly noted an ear infection. On my examination the following day, she was noted to have a white scab / plaque on posterior ear canal, no significant erythema, no purulence. Patient denied any prior history of POTS or formal diagnosis in the past. Recommend patient follow up with PCP in 1-2 weeks for further management and to further evaluate potential POTS. Patient was feeling better, ear pain improved, afebrile without leukocytosis and was deemed stable for discharge. CRP was negative. CAROLIN was checked and pending. She reported several different symptoms - dizzines, syncope, changes in appetite intermittently, joint stiffness / weakness, back pain. She also has a history of Bipolar disorder and has not been taking any medications for this in a while. States these symptoms still occurred while on medications. Advised to follow up and get further evaluated for POTS, consider ENT follow up given recurrent ear infections and dizziness. In addition, to consider re-establishing with psychiatrist, and consideration of possible somatization if rest of workup come back negative. Patient is to complete 5 more days of Augmetin. Medications: Augmentin Cipro HC ear drops Follow up: PCP 3-5 days Please call to schedule / confirm appointments Physical Exam: Gen: Alert, Oriented, NAD CV: Regular rate and rhythm, no edema HEENT: white scab/plaque of posterior external ear canal near TM Pulm: Nonlabored respirations on room air Abdomen: Soft, nontender, nondistended Vital Signs/Physical Exam: Temp Pulse Resp BP Pulse Ox 97.8 F 55 18 100/58 L 98 12/01/24 08:00 12/01/24 08:00 12/01/24 08:00 12/01/24 08:00 12/01/24 08:00 Laboratory Data at Discharge: WBC 7.20 thou/uL (4.3-10.9) 12/01/24 04:56 Hgb 13.5 g/dL (12.0-15.0) 12/01/24 04:56 Hct 38.4 % (36.0-45.0) 12/01/24 04:56 Plt Count 230 thou/uL (152-406) 12/01/24 04:56 PT 13.8 SECONDS (10-13.0) H 11/28/24 21:52 INR 1.23 11/28/24 21:52 APTT 31.7 SECONDS (27.2-37.4) 11/28/24 21:52 Sodium 139 mEq/L (136-145) 12/01/24 04:56 Potassium 3.8 mEq/L (3.5-5.1) 12/01/24 04:56 BUN 4 mg/dL (7-18) L 12/01/24 04:56 Creatinine 0.57 mg/dL (0.55-1.02) 12/01/24 04:56 Glucose 103 mg/dL (74-106) 12/01/24 04:56 Magnesium 2.1 mg/dL (1.6-2.4) 12/01/24 04:56 Total Bilirubin < 0.2 mg/dL (0.2-1.0) L 12/01/24 04:56 AST < 10 U/L (15-37) L 12/01/24 04:56 ALT < 14 U/L (13-56) 12/01/24 04:56 Alkaline Phosphatase 68 U/L (45-117) 12/01/24 04:56 Home Medications: Amox/Clavulanate [Augmentin 875-125 Tab*] 875 mg PO BID 5 Days #10 tab 12/01/24 Ciprofloxacin/Hydrocortisone [Cipro Hc Otic Suspension] 3 drop OT BID 7 Days #10 ml 12/01/24 New Medications: Amox/Clavulanate [Augmentin 875-125 Tab*] 875 mg PO BID 5 Days #10 tab Ciprofloxacin/Hydrocortisone [Cipro Hc Otic Suspension] 3 drop OT BID 7 Days #10 ml Physician Discharge Instructions: Physician discharge instructions: Patient presented with left ear pain associated with worsening dizziness secondary to recurrent left ear infection. She reported chronic intermittent dizziness / syncope for a few years, and currently a bit worse. Has been told she may have POTS but has not yet had any formal testing / no tilt table done yet. Chest xray was negative on admission. CT head was negative. She received empiric Augmentin in addition to eardrops and IV fluids and had improvement of her symptoms. Orthostatic vitals were negative this hospitalization. Discussed with patient that her symptoms could be related to Postural Orthostatic Tachycardia Syndrome (POTS) further exacerbated/complicated by recurrent ear infections. ER reportedly noted an ear infection. On my examination the following day, she was noted to have a white scab / plaque on posterior ear canal, no significant erythema, no purulence. Patient denied any prior history of POTS or formal diagnosis in the past. Recommend patient follow up with PCP in 1-2 weeks for further management and to further evaluate potential POTS. Patient was feeling better, ear pain improved, afebrile without leukocytosis and was deemed stable for discharge. CRP was negative. CAROLIN was checked and pending. She reported several different symptoms - dizzines, syncope, changes in appetite intermittently, joint stiffness / weakness, back pain. She also has a history of Bipolar disorder and has not been taking any medications for this in a while. States these symptoms still occurred while on medications. Advised to follow up and get further evaluated for POTS, consider ENT follow up given recurrent ear infections and dizziness. In addition, to consider re-establishing with psychiatrist, and consideration of possible somatization if rest of workup come back negative. Patient is to complete 5 more days of Augmetin. Medications: Augmentin Cipro HC ear drops Follow up: PCP 3-5 days Please call to schedule / confirm appointments Followup: NONE,NONE [Primary Care Provider] - Time spent managing pt's care (in minutes): 45
[2024-12-01 12:27] VITALS: BP 123/69; TEMP 98
== END 2024-12-01 14:25 | disposition home or self-care (01) | DRG 93 ==
LOC: ER 19:31 → 4TH 23:16 → OBSVTOIN 11-29 16:30
PROVIDERS: ADMIT Family Medicine; ATTEND Hospitalist
DX: G90.A Postural orthostatic tachycardia syndrome [POTS] (principal); H66.92 Otitis media, unspecified, left ear; F32.A Depression, unspecified; F41.9 Anxiety disorder, unspecified; F43.10 Post-traumatic stress disorder, unspecified; G89.29 Other chronic pain; M54.9 Dorsalgia, unspecified; F17.210 Nicotine dependence, cigarettes, uncomplicated; Z56.0 Unemployment, unspecified; Z88.1 Allergy status to other antibiotic agents; Z88.8 Allergy status to other drugs, medicaments and biological substances; Z59.82 Transportation insecurity; Z59.71 Insufficient health insurance coverage; Z79.899 Other long term (current) drug therapy
CPT/HCPCS: 36415; 70450; 71045; 80048; 80053; 80076; 80307; 81001; 81025; 83735; 84484; 85025; 85027; 85610; 85730; 86038; 86140; 93005; 93880; 99285; G0378; J1885; J2405; J7030; J8597